=== PATIENT | male | born 1975 | race Caucasian/White ===

== ENCOUNTER 2018-04-27 18:37 | Emergency (ER) | payer BC ==
[2018-04-27] MEDS ORDERED: Sodium Chloride 0.9% 10 ML Syringe FLUSH PRN (19:06)
[2018-04-27] MEDS ORDERED: Levofloxacin/Dextrose 5%-Water 750 MG in Premix Bag 1 BAG IV ONE (19:06)
--- NOTE | 2018-04-27 19:13 | EDM.PDOC ---
ED HPI GENERAL MEDICAL PROBLEM - General Chief Complaint: General Stated Complaint: Chills, Nephrostomy Tube Time Seen by Provider: 04/27/18 19:13 Source of Information: Reports: Patient - History of Present Illness INITIAL COMMENTS - FREE TEXT/NARRATIVE: Rigo is a 42-year-old male who came in because of sudden onset of fever, chills and mild headache. Is that about 11 AM. He also complained of nausea. He had a nephrostomy tube placed in the right kidney and ureter about a week ago. 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 Is otherwise previously healthy. He complains of no chest pain or shortness of breath ,or sore throat or cold symptoms. - Related Data Allergies Allergy/AdvReac Type Severity Reaction Status Date / Time amoxicillin [From Augmentin] Allergy Stomach Verified 04/27/18 20:13 Upset clavulanic acid Allergy Stomach Verified 04/27/18 20:13 [From Augmentin] Upset Home Meds: Home Meds Lisinopril 20 mg PO DAILY 03/11/18 [History] Multivitamin with Minerals [Multiple Vitamin] 1 tab PO DAILY 03/11/18 [History] Simvastatin [Zocor] 20 mg PO BEDTIME 03/11/18 [History] Levofloxacin [Levaquin] 750 mg PO DAILY #5 tablet 04/27/18 [Rx] Past Medical History HEENT History: Reports: Hard of Hearing Cardiovascular History: Reports: High Cholesterol, Hypertension Respiratory History: Reports: None Gastrointestinal History: Reports: GERD Genitourinary History: Reports: None 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 Musculoskeletal History: Reports: None Neurological History: Reports: None Psychiatric History: Reports: None Endocrine/Metabolic History: Reports: None Hematologic History: Reports: None Immunologic History: Reports: None Oncologic (Cancer) History: Reports: None Dermatologic History: Reports: None - Past Surgical History HEENT Surgical History: Reports: Tonsillectomy Male Surgical History: Reports: Varicocele Resection Social & Family History - Caffeine Use Caffeine Use: Reports: Coffee, Soda ED ROS GENERAL - Review of Systems Review Of Systems: ROS reveals no pertinent complaints other than HPI. ED EXAM, GENERAL - Physical Exam Exam: See Below Exam Limited By: No Limitations General Appearance: Alert, WD/WN Ears: Normal External Exam Nose: Normal Inspection, Normal Mucosa, No Blood Throat/Mouth: Normal Inspection, Normal Lips, Normal Teeth, Normal Gums, Normal Oropharynx, Normal Voice, No Airway Compromise Head: Atraumatic, Normocephalic Neck: Normal Inspection, Supple, Non-Tender, Full Range of Motion Respiratory/Chest: No Respiratory Distress, Lungs Clear, Normal Breath Sounds, No Accessory Muscle Use, Chest Non-Tender GI/Abdominal: Normal Bowel Sounds, Soft, Non-Tender, No Organomegaly, No Distention, No Abnormal Bruit, No Mass, Other (Neprhostomy site is clean.) Back Exam: Normal Inspection Neurological: Alert, CN II-XII Intact Psychiatric: Normal Affect Skin Exam: Warm Course - Vital Signs Text/Narrative:: After fluids,he was feeling better. Last Recorded V/S: Last Vital Signs Temp 99.7 F 04/27/18 20:15 Pulse 104 H 04/27/18 20:15 Resp 18 04/27/18 20:15 BP 119/74 04/27/18 20:15 Pulse Ox 100 04/27/18 20:15 - Orders/Labs/Meds Orders: Active Orders 24 hr Category Date Time Status CXR [Chest 2V] [CR] Stat Exams 04/27/18 20:02 Taken CULTURE BLOOD [BC] Urgent Lab 04/27/18 19:17 Received CULTURE BLOOD [BC] Urgent Lab 04/27/18 19:25 Received CULTURE URINE [RM] Stat Lab 04/27/18 20:48 Ordered WEST NILE VIRUS ANTIBODY,SERUM Urgent Lab 04/27/18 19:17 Received Sodium Chloride 0.9% [Normal Saline] 1,000 ml Med 04/27/18 19:15 Active IV ASDIRECTED Sodium Chloride 0.9% [Saline Flush] Med 04/27/18 19:06 Active 10 ml FLUSH ASDIRECTED PRN levoFLOXacin [Levaquin] Med 04/27/18 21:05 Once 750 mg PO ONETIME ONE Blood Culture x2 Reflex Set [OM.PC] Urgent Oth 04/27/18 19:06 Ordered Peripheral IV Insertion Adult [OM.PC] Routine Oth 04/27/18 19:05 Ordered Medication Orders Sodium Chloride (Normal Saline) 1,000 mls @ 999 mls/hr IV ASDIRECTED [facility] Last Admin: 04/27/18 19:28 Dose: 999 mls/hr Levofloxacin (Levaquin) 750 mg PO ONETIME ONE Stop: 04/27/18 21:06 Sodium Chloride (Saline Flush) 10 ml FLUSH ASDIRECTED PRN PRN Reason: Keep Vein Open Labs: Laboratory Tests 04/27/18 04/27/18 04/27/18 Range/Units 19:08 19:17 19:17 WBC 11.8 (4.5-12.0) X10-3/uL RBC 4.76 (4.30-5.75) x10(6)uL Hgb 15.3 (11.5-15.5) g/dL Hct 44.7 (30.0-51.3) % MCV 93.9 (80-96) fL MCH 32.1 (27.7-33.6) pg MCHC 34.2 (32.2-35.4) g/dL RDW 11.4 L (11.5-15.5) % Plt Count 212 (125-369) X10(3)uL MPV 8.5 (7.4-10.4) fL Add Manual Diff Yes Neutrophils % (Manual) 87 H (46-82) % Band Neutrophils % 10 H (0-6) % Lymphocytes % (Manual) 2 L (13-37) % Monocytes % (Manual) 1 L (4-12) % Sodium 135 (135-145) mmol/L Potassium 4.3 (3.5-5.3) mmol/L Chloride 99 L (100-110) mmol/L Carbon Dioxide 28 (21-32) mmol/L BUN 13 (7-18) mg/dL Creatinine 1.2 (0.70-1.30) mg/dL Est Cr Clr Drug Dosing 83.65 mL/min Estimated GFR (MDRD) > 60 (>60) BUN/Creatinine Ratio 10.8 (9-20) Glucose 118 H (80-116) mg/dL Lactic Acid (0.4-2.2) mmol/L Calcium 9.0 (8.6-10.2) mg/dL Total Bilirubin 0.6 (0.1-1.3) mg/dL AST 35 H (5-25) IU/L ALT 43 H (12-36) U/L Alkaline Phosphatase 69 (56-112) IU/L C-Reactive Protein (0.5-0.9) mg/dL Total Protein 7.8 (6.0-8.0) g/dL Albumin 4.1 (3.5-5.2) g/dL Globulin 3.7 g/dL Albumin/Globulin Ratio 1.1 Urine Color Yellow (YELLOW) Urine Appearance Clear (CLEAR) Urine pH 7.0 H (5.0-6.5) Ur Specific [place] 1.005 L (1.010-1.025) Urine Protein Negative (NEGATIVE) mg/dL Urine Glucose (UA) Normal (NEGATIVE) mg/dL Urine Ketones Negative (NEGATIVE) mg/dL Urine Occult Blood Negative (NEGATIVE) Urine Nitrite Negative (NEGATIVE) Urine Bilirubin Negative (NEGATIVE) Urine Urobilinogen Normal (NEGATIVE) mg/dL Ur Leukocyte Esterase Negative (NEGATIVE) Urine RBC Not seen (0) Urine WBC 0-5 (0) Ur Squamous Epith Cells Few H (NS,R,O) Urine Bacteria Occasional H (NS) 04/27/18 04/27/18 Range/Units 19:17 19:17 WBC (4.5-12.0) X10-3/uL RBC (4.30-5.75) x10(6)uL Hgb (11.5-15.5) g/dL Hct (30.0-51.3) % MCV (80-96) fL MCH (27.7-33.6) pg MCHC (32.2-35.4) g/dL RDW (11.5-15.5) % Plt Count (125-369) X10(3)uL MPV (7.4-10.4) fL Add Manual Diff Neutrophils % (Manual) (46-82) % Band Neutrophils % (0-6) % Lymphocytes % (Manual) (13-37) % Monocytes % (Manual) (4-12) % Sodium (135-145) mmol/L Potassium (3.5-5.3) mmol/L Chloride (100-110) mmol/L Carbon Dioxide (21-32) mmol/L BUN (7-18) mg/dL Creatinine (0.70-1.30) mg/dL Est Cr Clr Drug Dosing mL/min Estimated GFR (MDRD) (>60) BUN/Creatinine Ratio (9-20) Glucose (80-116) mg/dL Lactic Acid 1.2 (0.4-2.2) mmol/L Calcium (8.6-10.2) mg/dL Total Bilirubin (0.1-1.3) mg/dL AST (5-25) IU/L ALT (12-36) U/L Alkaline Phosphatase (56-112) IU/L C-Reactive Protein 3.5 H* (0.5-0.9) mg/dL Total Protein (6.0-8.0) g/dL Albumin (3.5-5.2) g/dL Globulin g/dL Albumin/Globulin Ratio Urine Color (YELLOW) Urine Appearance (CLEAR) Urine pH (5.0-6.5) Ur Specific [place] (1.010-1.025) Urine Protein (NEGATIVE) mg/dL Urine Glucose (UA) (NEGATIVE) mg/dL Urine Ketones (NEGATIVE) mg/dL Urine Occult Blood (NEGATIVE) Urine Nitrite (NEGATIVE) Urine Bilirubin (NEGATIVE) Urine Urobilinogen (NEGATIVE) mg/dL Ur Leukocyte Esterase (NEGATIVE) Urine RBC (0) Urine WBC (0) Ur Squamous Epith Cells (NS,R,O) Urine Bacteria (NS) Meds: Medications Generic Name Dose Route Start Last Admin Trade Name Freq PRN Reason Stop Dose Admin Sodium Chloride 1,000 mls @ 999 mls/hr 04/27/18 19:15 04/27/18 19:28 Normal Saline IV 999 mls/hr ASDIRECTED KARRIE Administration Levofloxacin 750 mg 04/27/18 21:05 Levaquin PO 04/27/18 21:06 ONETIME ONE Sodium Chloride 10 ml 04/27/18 19:06 Saline Flush FLUSH ASDIRECTED PRN Keep Vein Open Discontinued Medications Generic Name Dose Route Start Last Admin Trade Name Freq PRN Reason Stop Dose Admin Levofloxacin/Dextrose 750 mg/ 150 mls @ 100 mls/hr 04/27/18 19:06 04/27/18 19 :34 Premix IV 04/27/18 20:35 100 mls/hr ONETIME ONE Administration Ketorolac Tromethamine 30 mg 04/27/18 20:19 04/27/18 20:34 Toradol IVPUSH 04/27/18 20:20 30 mg ONETIME ONE Administration Ondansetron HCl 4 mg 04/27/18 19:15 04/27/18 19:31 Zofran IVPUSH 04/27/18 19:16 4 mg ONETIME ONE Administration Departure - Departure Time of Disposition: 21:06 Disposition: Home, Self-Care 01 Condition: Good Clinical Impression: Fever chills, Nephrostomy status - Discharge Information Prescriptions: Levofloxacin [Levaquin] 750 mg PO DAILY #5 tablet Referrals: Ben Austin MD [Primary Care Provider] - Forms: ED Department Discharge - Problem List & Annotations (1) Acute febrile illness SNOMED Code(s): 279277192 Code(s): R50.9 - FEVER, UNSPECIFIED Status: Acute Current Visit: Yes (2) Nephrostomy status SNOMED Code(s): 213084682, 521320392 Code(s): Z93.6 - OTHER ARTIFICIAL OPENINGS OF URINARY TRACT STATUS Status: Acute Current Visit: Yes - Problem List Review Problem List Initiated/Reviewed/Updated: Yes - My Orders Last 24 Hours: My Active Orders 04/27/18 19:05 Peripheral IV Insertion Adult [OM.PC] Routine 04/27/18 19:06 Sodium Chloride 0.9% [Saline Flush] 10 ml FLUSH ASDIRECTED PRN Blood Culture x2 Reflex Set [OM.PC] Urgent 04/27/18 19:15 Sodium Chloride 0.9% [Normal Saline] 1,000 ml IV ASDIRECTED 04/27/18 19:17 CULTURE BLOOD [BC] Urgent WEST NILE VIRUS ANTIBODY,SERUM Urgent 04/27/18 19:25 CULTURE BLOOD [BC] Urgent 04/27/18 20:02 CXR [Chest 2V] [CR] Stat 04/27/18 20:48 CULTURE URINE [RM] Stat 04/27/18 21:05 levoFLOXacin [Levaquin] 750 mg PO ONETIME ONE - Assessment/Plan Last 24 Hours: My Active Orders 04/27/18 19:05 Peripheral IV Insertion Adult [OM.PC] Routine 04/27/18 19:06 Sodium Chloride 0.9% [Saline Flush] 10 ml FLUSH ASDIRECTED PRN Blood Culture x2 Reflex Set [OM.PC] Urgent 04/27/18 19:15 Sodium Chloride 0.9% [Normal Saline] 1,000 ml IV ASDIRECTED 04/27/18 19:17 CULTURE BLOOD [BC] Urgent WEST NILE VIRUS ANTIBODY,SERUM Urgent 04/27/18 19:25 CULTURE BLOOD [BC] Urgent 04/27/18 20:02 CXR [Chest 2V] [CR] Stat 04/27/18 20:48 CULTURE URINE [RM] Stat 04/27/18 21:05 levoFLOXacin [Levaquin] 750 mg PO ONETIME ONE Plan: Rigo has a CRP of 3.5, and he has 87% neutrophilia, 10% bands. His UA was otherwise normal and so was the chest x-ray which I reviewed independently. I gave him 1 L of normal saline, 750 mg of IV Levaquin. My plan is to discharge him home on oral Levaquin, and urine and blood cultures have been setup, along with West Nile virus antibodies. He has an appointment with Dr. Austin next week but I advised him strongly to return here or go to the ER at [facility] if his symptoms return or get worse.
[2018-04-27] MEDS ORDERED: Ondansetron 4 MG/2 ML SDV IVPUSH ONE (19:15)
[2018-04-27] MEDS ORDERED: Sodium Chloride 0.9% 1,000 ML IV SCH (19:15)
[2018-04-27] MEDS ORDERED: Ketorolac 30 MG/ML SDV IVPUSH ONE (20:19)
[2018-04-27] MEDS: Levofloxacin 750 MG Tab PO ONE ×2 (21:45)
[2018-04-27] MEDS ORDERED: Levofloxacin 750 MG Tab ONE (22:13)
--- NOTE | 2018-04-30 15:05 | CR ---
INDICATION: Fever. CHEST, PA AND LATERAL VIEWS: FINDINGS: No comparison studies. The lungs and pleural spaces look clear. The cardiac and mediastinal contours are normal. Minimal degenerative end plate change and spurring throughout the thoracic spine. IMPRESSION: No acute abnormalities shown. MTDD
== END 2018-04-27 21:49 | disposition home or self-care (01) ==
LOC: FB.ED 18:37
DX: R50.9 Fever, unspecified (principal); Z93.6 Other artificial openings of urinary tract status; I10 Essential (primary) hypertension; Z88.1 Allergy status to other antibiotic agents; Z79.899 Other long term (current) drug therapy
CPT/HCPCS: 36415; 71046; 80053; 81001; 83605; 85025; 86140; 86788; 86789; 87040; 87086; 96365; 96366; 96375; 99284; A9270; J1885; J1956; J2405; J7030